=== PATIENT | female | born 1945 | race Caucasian/White ===

== ENCOUNTER → 2016-06-21 | Outpatient (CLI) | payer OTHER | LOC: BMCIMAGING 10:01 | DX: Z12.31 Encounter for screening mammogram for malignant neoplasm of breast (principal); Z85.3 Personal history of malignant neoplasm of breast | CPT/HCPCS: G0202 ==

== ENCOUNTER → 2017-06-26 | Outpatient (CLI) | payer OTHER | LOC: FIMAGING 11:26 | PROVIDERS: ATTEND Obstetrics & Gynecology Gynecology | DX: Z12.31 Encounter for screening mammogram for malignant neoplasm of breast (principal) ==

== ENCOUNTER → 2018-07-03 | Outpatient (CLI) | payer OTHER | LOC: FIMAGING 10:08 | PROVIDERS: ATTEND Obstetrics & Gynecology Gynecology | DX: Z12.31 Encounter for screening mammogram for malignant neoplasm of breast (principal); Z85.3 Personal history of malignant neoplasm of breast ==